=== PATIENT | female | born 1970 | race Caucasian/White ===

== ENCOUNTER → 2017-09-06 | Outpatient (CLI) | payer OTHER ==
[~2017-09-06] MED LIST: ADVIL200 MG PO; DIOVAN160 MG PO; TOPROL XL25 MG PO
== END | disposition home or self-care (01) ==
LOC: CDC 15:26
DX: Z01.810 Encounter for preprocedural cardiovascular examination (principal)
CPT/HCPCS: 93000

== ENCOUNTER 2017-09-13 05:40 | Day surgery (SDC) | payer OTHER ==
[~2017-09-13] VITALS: Ht 165.1 cm; Wt 66.7 kg
[2017-09-13 06:48] VITALS: BP 174/82
[2017-09-13] MEDS ORDERED: NORCO 5/3251 TABLET PO (08:51)
[2017-09-13 09:51] VITALS: BP 155/88
[2017-09-13 10:29] VITALS: BP 147/90
== END 2017-09-13 10:31 | disposition home or self-care (01) ==
LOC: SDC 05:40
DX: N87.0 Mild cervical dysplasia (principal); N84.0 Polyp of corpus uteri; N84.1 Polyp of cervix uteri; N80.9 Endometriosis, unspecified; N92.1 Excessive and frequent menstruation with irregular cycle; I10 Essential (primary) hypertension; R73.01 Impaired fasting glucose; Z82.49 Family history of ischemic heart disease and other diseases of the circulatory system; Z80.3 Family history of malignant neoplasm of breast; Z83.3 Family history of diabetes mellitus; Z83.49 Family history of other endocrine, nutritional and metabolic diseases; Z80.8 Family history of malignant neoplasm of other organs or systems
CPT/HCPCS: 88305; J2250; J3010